=== PATIENT | female | born 1990 | race Caucasian/White ===

== ENCOUNTER 2024-05-26 13:30 | Emergency (ER) | payer MEDICAID, SELFPAY ==
[2024-05-26 13:45] VITALS: BP 134/88; PULSE 116; RESP 18; TEMP 37.7; O2SAT 99; BMI 40.3
--- NOTE | 2024-05-26 14:01 | XR_ITS ---
Examination: CT abdomen and pelvis without contrast. Coronal 3-D reconstructions. Sagittal 2-D reconstructions. Date and time of exam:May 26, 2024 1534 hours Comparison March 18, 2021 INDICATIONS: Left-sided flank pain radiating to the lower back today CTDI: vol (mGy): 19.6 DLP: (mGycm): 1183 Technique: Axial images of the abdomen have been obtained, 3 mm slice thickness Intravenous contrast material has not been administered. Low dose protocols were performed. One or more of the following dose reduction techniques were used; automated exposure control, adjustment of the mA and/or KV according to patient size, use of iterative reconstruction technique. Findings: No focal liver or splenic lesions No gallstones No pancreatic or adrenal mass No renal or ureteral calculi, no hydronephrosis Normal appendix Colonic diverticulosis Acute diverticulitis descending colon and quite near the left kidney No bowel obstruction No peridiverticular abscess Solid mass left ovary 9 mm Bladder intact IMPRESSION: Acute diverticulitis mid descending colon, no peridiverticular abscess Recommend pelvic sonography follow-up to confirm 9 mm solid mass left ovary
--- NOTE | 2024-05-26 14:01 | PD.EDRME ---
Rapid Medical Screening Exam E Arrival date/time: 05/26/24 13:30 33-year-old female with a history of diverticulitis presents to the emergency room with a chief complaint of left lower quadrant abdominal pain and tenderness x 2 days. I have greeted and performed a focused initial assessment of this patient. A comprehensive ED assessment and evaluation of the patient, analysis of all test results, and completion of the medical decision making process will be conducted by additional ED providers. Chief Complaint: Abdominal Pain Time Seen by Provider: 05/26/24 13:41 Vital signs: Vital Signs Temperature 99.9 F 05/26/24 13:45 Pulse Rate 116 H 05/26/24 13:45 Respiratory Rate 18 05/26/24 13:45 Blood Pressure 134/88 H 05/26/24 13:45 Pulse Oximetry (%) 99 05/26/24 13:45 Oxygen Delivery Method Room Air 05/26/24 13:45 Vital signs reviewed by provider: Yes
[2024-05-26 14:21] LABS: Collection Type, Urine Clean Catch
[2024-05-26 14:32] LABS: Basophils # (Auto) 0.1 Thou/mm3 (0.0-0.2); Basophils % (Auto) 0 % (0-2.5); Eosinophils # (Auto) 0.1 Thou/mm3 (0.0-0.5); Eosinophils % (Auto) 1 % (0-10); Hematocrit 39.5 % (36.0-46.0); Hemoglobin 13.6 g/dL (12.0-16.0); Immature Granulocytes % (Auto) 1 % (0-0); Immature Granulocytes Auto 0.07 Thou/mm3 (0.00-0.00); Lymphocytes % (Auto) 13 % (10-50); Mean Corpuscular HGB Conc 34.4 g/dl (31.0-37.0); Mean Corpuscular Hemoglobin 29.1 pg (25.0-35.0); Mean Corpuscular Volume 85 fL (80-100); Monocytes # (Auto) 0.8 Thou/mm3 (0.0-0.8); Monocytes % (Auto) 5 % (0-12); Neutrophils # (Auto) 12.3 Thou/mm3 (1.8-7.7); Neutrophils % (Auto) 80 % (37-80); Nucleated Red Blood Cell % 0 /100 WBC (0); Platelet Count 364 Thou/mm3 (140-440); RDW Standard Deviation 38.2 fL (36.4-46.3); Red Blood Count 4.67 Miln/mm3 (4.00-5.20); White Blood Count 15.4 Thou/mm3 (3.6-11.0)
[2024-05-26 14:36] LABS: Bacteria,Urine Rare; Bilirubin,Urine Negative (Negative); Blood,Urine Negative (Negative); Clarity,Urine Clear (Clear/Hazy); Color,Urine Yellow (Lt Yel-Yel); Glucose, Urine Negative (Negative); Ketones,Urine 2+ (Negative); Leukocyte Esterase,Urine Negative (Negative); Nitrite,Urine Negative (Negative); Protein,Urine Trace (Neg - Trace); RBC,Urine 5 /hpf (0-3); Specific Gravity,Urine 1.029 (1.001-1.035); Squamous Epithelial Cell,Urine 3 /hpf (0-5); Urobilinogen,Urine Negative mg/dL (0.0-1.0); WBC,Urine 1 /hpf (0-5)
[2024-05-26] MEDS: ONDANSETRON ODT 4 MG TABRAP PO (14:40)
[2024-05-26 14:41] LABS: HCG Qualitative,Urine Negative
[2024-05-26 14:51] LABS: Alanine Aminotransferase 12 U/L (10-49); Albumin, Serum 4.8 gm/dL (3.5-5.0); Albumin/Globulin Ratio 1.6 (1.2-2.2); Alkaline Phosphatase 82 U/L (46-116); Anion Gap 9 (7-16); Aspartate Amino Transferase 17 U/L (0-34); BUN/Creatinine Ratio 13 Ratio (12-20); Bilirubin,Total 0.7 mg/dL (0.3-1.2); Blood Urea Nitrogen 13 mg/dL (9-23); Calcium 9.6 mg/dL (8.3-10.6); Calcium (Corrected) 9.6 mg/dL (8.5-10.1); Carbon Dioxide 25.5 mMol/L (20.0-31.0); Chloride 103 mMol/L (98-107); Estimated Creatinine Clearance 93.5 mL/min (>60); Glucose 95 mg/dL (74-106); Lipase 32 U/L (12-53); Osmolality,Calculated 273 (275-295); Potassium 3.8 mMol/L (3.4-5.1); Sodium 137 mMol/L (136-145); Total Protein 7.8 gm/dL (5.7-8.2); eGFR > 60 See Note
--- NOTE | 2024-05-26 16:28 | EDNOTE_ITS ---
ED Abdominal Pain RME/HPI General Chief Complaint: Abdominal Pain Stated complaint: Abdominal pain left upper quad., nausea Time seen by provider: 05/26/24 13:41 Arrival date/time: 05/26/24 13:30 RME / HPI RME / HPI narrative: 33-year-old female patient with a history of diverticulitis in the past, came in for evaluation regarding left lower quadrant pain. Onset of symptoms for the last 2 days, described as dull ache, severity mild. Patient denies any fever. Denies any vomiting. Denies any diarrhea denies any constipation however noticed small volume of stool for the last 2 days. Denies any other complaints no medications taken prior to arrival. Related Data Previous Rx's ?Medication ?Instructions ?Recorded ibuprofen 600 mg tablet 600 mg PO Q6H PRN Pain Scale 1-3 10/13/19 (Mild #20 tabs ibuprofen 600 mg tablet 600 mg PO Q6H #30 tabs 01/13 pantoprazole 20 mg tablet,delayed 20 mg PO QDAY #14 ta bs 04/17/21 release (Protonix) diphenoxylate-atropine 2.5 1 tab PO BID PRN diarrhea # 10 tabs 04/07/23 mg-0.025 mg tablet (Lomotil) ondansetron 4 mg disintegrating 4 mg PO Q8H PRN nausea and 04/07/23 tablet vomiting #10 tabs acetaminophen 500 mg tablet 1,000 mg (2 x 500 mg) PO Q 8HR PRN 05/26/24 (Tylenol Extra Strength) pain #60 tabs ciprofloxacin HCl 500 mg tablet 500 mg PO BID #14 tabs 05/26/24 metronidazole 500 mg tablet 500 mg PO BID 7 days #14 t abs 05/26/24 Allergies Allergy/AdvReac Type Severity Reaction Status Date / Time nitrofurantoin Allergy Verified 05/26/24 13:37 Review of Systems Review of Systems Narrative Review of Systems: Review of system reviewed and within normal limits except mentioned in HPI ED Exam Narrative Physical exam: VITAL SIGNS: Reviewed. GENERAL APPEARANCE: Alert and interactive, follows commands, no acute distress, HEAD AND FACE: Non-traumatic. ENT: PERRL, pink conjunctivitis, eyelid no trauma, Mucous membrane moist. NECK: Supple, nontender, no nuchal rigidity. CHEST: No tenderness, no crepitus, no paradoxical movement, no retractions. LUNGS: Clear, well ventilated, symmetric, no rales, no wheezing, no ronchi, no stridor, good breath sounds bilaterally. HEART: Regular rate, regular rhythm, no murmur, no gallops. ABDOMEN: Soft, positive bowel sounds, nondistended, no guarding, left lower quadrant tenderness, no rebound, no masses, RECTAL: Deferred. GENITAL: Deferred. NEUROLOGICAL: Gross motor function intact sensory function intact, Appropriate for age. MUSCULOSKELETAL: low back nontender, full range of motion. EXTREMITIES: Nontender, full range of motion. SKIN: Color pink, dry, no rash, no lacerations, no abrasions, no contusions. LYMPHATICS: Deferred. Course Quality Measures none Orders Category Date Time Status CT abdomen pelvis wo con Stat Exams 05/26/24 14:01 Completed CBC Stat Lab 05/26/24 14:13 Completed CMP [Comprehensive Metabolic Panel] Stat Lab 05/26/24 14:13 Completed HCG Qualitative,Urine Stat Lab 05/26/24 14:07 Completed Lipase Stat Lab 05/26/24 14:13 Completed UA [Urinalysis] Stat Lab 05/26/24 14:07 Completed Urine Culture Stat Lab 05/26/24 14:07 Received ACETAMINOPHEN w/COD 300-30 [Tylenol w/Cod #3] Med 05/26/24 16:27 Discontinued 1 tab PO X1 ONE Ciprofloxacin HCl [Ciprofloxacin] Med 05/26/24 16:27 Discontinued 500 mg PO X1 ONE Ondansetron Odt [Zofran Odt] Med 05/26/24 14:01 Discontinued 4 mg PO X1 ONE metroNIDAZOLE [Flagyl] Med 05/26/24 16:27 Discontinued 500 mg PO X1 ONE Vital Signs Vital signs: Vital Signs Temperature 99.9 F 05/26/24 13:45 Pulse Rate 116 H 05/26/24 13:45 Respiratory Rate 18 05/26/24 13:45 Blood Pressure 134/88 H 05/26/24 13:45 Pulse Oximetry (%) 99 05/26/24 13:45 Oxygen Delivery Method Room Air 05/26/24 13:45 Abdominal Pain MDM MDM Narrative MDM Narrative:: 33-year-old female patient with a history of diverticulitis in the past, came in for evaluation regarding left lower quadrant pain. Onset of symptoms for the last 2 days, described as dull ache, severity mild. Patient denies any fever. Denies any vomiting. Denies any diarrhea denies any constipation however noticed small volume of stool for the last 2 days. Denies any other complaints no medications taken prior to arrival. Patient's workup is significant for slight leukocytosis of 15,000, CT scan of the abdomen bilateral pelvis, showed acute diverticulitis otherwise unremarkable. Results discussed with the patient. Patient received Flagyl and Cipro in the emergency room. Patient appears nontoxic and hemodynamically stable. Patient discharged home and instructed to follow-up with primary care provider in 24 to 48 hours. Instructed to return to the emergency department immediately if worsening of symptoms Patient data External records reviewed:: None Clinical information provided by:: patient Social determinants that could affect healthcare access:: none Patient has the following chronic illnesses:: history of diverticulitis. How is presenting disease/condition affected by chronic disease/condition?: exacerbated by Evaluation data The following diagnostics were reviewed and interpreted by me:: lab results and radiology exam(s) Lab and/or radiology exams considered but not ordered:: None Interpretation Summary: See results in MDM Medications / Prescriptions Medications or Prescriptions considered but not ordered:: None Medication administrations:: Medication Administration History Discontinued Medications Acetaminophen/Codeine Phosphate (Acetaminophen W/Cod 300-30 Tablet) 1 tab PO X1 ONE Stop: 05/26/24 16:28 Ciprofloxacin (Ciprofloxacin Hcl 250 Mg Tablet) 500 mg PO X1 ONE Stop: 05/26/24 16:28 Metronidazole (Metronidazole 250 Mg Tablet) 500 mg PO X1 ONE Stop: 05/26/24 16:28 Ondansetron HCl (Ondansetron Odt 4 Mg Tabrap) 4 mg PO X1 ONE; Protocol Stop: 05/26/24 14:02 Last Admin: 05/26/24 14:40 Dose: 4 mg Documented By: OA Cipro, Flagyl, Tylenol with codeine and Zofran Consultations Consultation(s) initiated? (list below): No Diagnosis Differential diagnosis abdominal pain: abdominal pain, diverticulitis and pancreatitis Most likely diagnosis given after review of the tests above:: Acute diverticulitis Admission Indicated Admission indicated?: not indicated Explain why admission is indicated or not indicated:: Stable Admission Request Was there a request for admission?: No Disposition Plan Disposition Plan: Discharge Discharge Attestation Discharge Attestation: The patient was given an opportunity to ask questions and understood the discharge instructions. Discharge instructions specifically effects, indications for sooner follow up or return to the emergency department, and the expected course of current diagnosis. Patient condition: Stable Discharge Plan Plan Patient Disposition: HOME (Self Care) Disposition Comment: stable Prescriptions/Referrals Prescriptions/Med Rec: New metronidazole 500 mg tablet 500 mg PO BID 7 Days Qty: 14 0RF ciprofloxacin HCl 500 mg tablet 500 mg PO BID Qty: 14 0RF acetaminophen [Tylenol Extra Strength] 500 mg tablet 1,000 mg PO Q8HR PRN (Reason: pain) Qty: 60 0RF No Action ibuprofen 600 mg Tablet 600 mg PO Q6H PRN (Reason: Pain Scale 1-3 (Mild) Qty: 20 0RF ibuprofen 600 mg tablet 600 mg PO Q6H Qty: 30 0RF pantoprazole [Protonix] 20 mg tablet,delayed release (DR/EC) 20 mg PO QDAY Qty: 14 0RF diphenoxylate-atropine [Lomotil] 2.5-0.025 mg tablet 1 tab PO BID PRN (Reason: diarrhea) Qty: 10 0RF ondansetron 4 mg tablet,disintegrating 4 mg PO Q8H PRN (Reason: nausea and vomiting) Qty: 10 0RF Referrals: Betito Roldan MD [Primary Care Provider] - In 1 week Problem List Clinical Impression: Diverticulitis Patient/Caregiver Discharge Instructions Discharge Activity: activity as tolerated Education Materials: ED Diverticulitis Additional Instructions: Thank you for the opportunity for serving you today. You are stable for discharged . You are advised to: Follow-up with your PCP in 1 to 2 days Return to ED for worsening of symptoms Increase oral fluids Take medication as prescribed Liquid diet for 2 to 3 days advance as tolerated Print Language: Latvian Stand Alone Forms: Danna Award Info., Patient Portal Info Letter CE/SANJUANITA Supervising Physician CE/SANJUANITA Supervising Physician: MD Kadi
[2024-05-26] MEDS: CIPROFLOXACIN HCL 250 MG TABLET 500 MG PO (16:35)
[2024-05-26] MEDS: metroNIDAZOLE 250 MG TABLET 500 MG PO (16:35)
[2024-05-26] MEDS: ACETAMINOPHEN w/COD 300-30 TABLET 1 TAB PO (16:36)
== END 2024-05-26 16:41 | disposition home or self-care (01) ==
PROVIDERS: Nurse Practitioner Family; Emergency Provider Emergency Medicine; PCP Family Medicine
DX: K57.32 Diverticulitis of large intestine without perforation or abscess without bleeding (principal)
CPT/HCPCS: 36415; 74176; 80053; 81001; 81025; 83690; 85025; 87077; 87086; 87186; 99284; Q0162; A9270